=== PATIENT | male | born 1980 | race Caucasian/White ===

== ENCOUNTER 2020-01-10 14:29 | Emergency (ER) | payer BC ==
[2020-01-10] MEDS ORDERED: Sodium Chloride 0.9% 2.5 ML Syringe FLUSH PRN (15:00)
[2020-01-10] MEDS ORDERED: Sodium Chloride 0.9% 1,000 ML IV ONE (15:00)
[2020-01-10] MEDS ORDERED: Aspirin 81 MG Tab.Chew PO ONE (15:00)
[2020-01-10] MEDS ORDERED: Sodium Chloride 0.9% 10 ML Syringe FLUSH PRN (15:00)
--- NOTE | 2020-01-10 15:10 | EDM.PDOC ---
ED HPI GENERAL MEDICAL PROBLEM - General Chief Complaint: Respiratory Problem Stated Complaint: SOB TINGLING Time Seen by Provider: 01/10/20 14:34 Source of Information: Reports: Patient - History of Present Illness INITIAL COMMENTS - FREE TEXT/NARRATIVE: History of present illness: 39-year-old male presenting with feeling of tingling throughout his whole body as well as some mild difficulty breathing just prior to arrival here. He reports he was just driving into town when he suddenly started to feel this way. He pulled over and rested and symptoms stopped. However once he started driving again his symptoms returned. He reports he was at rest and was not particularly stressed when they occurred just he was singing in his car. He did note that he started to have some pressure/sharpness in his left chest around the same time. Symptoms are still ongoing now even while laying in the bed. He does report he has some mild palpitation/racing heartbeat type symptoms as well. Review of systems: As per history of present illness and below otherwise all systems reviewed and negative. Past medical history: As per history of present illness and as reviewed below otherwise noncontributory. Surgical history: As per history of present illness and as reviewed below otherwise noncontributory. Orthopedic Social history: No reported history of drug or alcohol abuse. No tobacco. Family history: As per history of present illness and as reviewed below otherwise noncontributory. Physical exam: GEN: no acute distress, well appearing HEENT: Atraumatic, normocephalic, mucous membranes moist, Neck: supple, nontender, trachea midline. Lungs: No respiratory distress. Heart: RRR Back: nontender Extremities: Atraumatic. Neurovascularly intact. Neuro: Awake, alert, oriented. Neuro Exam nonfocal. Skin: warm, dry, no lesions Diagnostics: Labs, EKG, chest x-ray Therapeutics: IV fluids MDM: Impression: [] Plan: [] Definitive disposition and diagnosis as appropriate pending reevaluation and review of above. - Related Data Allergies Allergy/AdvReac Type Severity Reaction Status Date / Time No Known Allergies Allergy Verified 01/10/20 14:33 Home Meds: Home Meds Pravastatin Sodium 20 mg PO DAILY 01/10/20 [History] Past Medical History Cardiovascular History: Reports: High Cholesterol Psychiatric History: Reports: Depression - Infectious Disease History Infectious Disease History: Reports: Chicken Pox Social & Family History - Family History Family Medical History: Noncontributory - Tobacco Use Smoking Status *Q: Unknown Ever Smoked ED ROS GENERAL - Review of Systems Review Of Systems: See Below (See HPI) ED EXAM, GENERAL - Physical Exam Exam: See Below (See HPI) EKG INTERPRETATION EKG Interpretation Comments: EKG performed today at 2:43 PM, sinus rhythm, rate 97, minimal ST prominence over inferior leads, no STEMI. Slightly prolonged QT interval of 496. EKG performed at 5:26 PM, sinus rhythm, rate 68, no acute ischemic changes. QTc 430. No STEMI. Course - Vital Signs Text/Narrative:: Palpitations, paresthesias, mild dyspnea and mild chest pain. EKG with no acute ischemia but slightly prolonged QTC. Repeat EKG with no ischemia and normalized QTC. Slightly low potassium which was repleted here. Patient given IV fluids. Patient low risk for coronary artery disease. Heart score 1. Initial and repeat troponin negative. Low risk for DVT/PE, although the patient does drive for long periods throughout the day between 2 to 6 hours. No hypoxia. D-dimer was negative. Symptoms completely resolved after IV fluids and aspirin given here. Patient agrees to follow-up with primary care physician as soon as possible. In itially we discussed plan/suggestion for Holter monitoring to be initiated here, however patient lives far and would rather follow-up outpatient with his primary care physician to arrange this. Symptom-free at time of discharge. Last Recorded V/S: Last Vital Signs Temp 97.3 F 01/10/20 14:30 Pulse 82 01/10/20 16:30 Resp 18 01/10/20 16:30 BP 133/83 01/10/20 16:30 Pulse Ox 99 01/10/20 16:30 - Orders/Labs/Meds Orders: Active Orders 24 hr Category Date Time Status EKG 12 Lead [EKG Documentation Completion] [RC] STAT Care 01/10/20 17:02 Active EKG Documentation Completion [RC] STAT Care 01/10/20 15:03 Active Sodium Chloride 0.9% [Saline Flush] Med 01/10/20 15:00 Active 10 ml FLUSH ASDIRECTED PRN Sodium Chloride 0.9% [Saline Flush] Med 01/10/20 15:00 Active 2.5 ml FLUSH ASDIRECTED PRN Saline Lock Insert [OM.PC] Stat Oth 01/10/20 15:00 Ordered Medication Orders Sodium Chloride (Saline Flush) 10 ml FLUSH ASDIRECTED PRN PRN Reason: Keep Vein Open Last Admin: 01/10/20 15:16 Dose: 10 ml Documented by: MICHELLE Sodium Chloride (Saline Flush) 2.5 ml FLUSH ASDIRECTED PRN PRN Reason: Keep Vein Open Last Admin: 01/10/20 15:16 Dose: 2.5 ml Documented by: MICHELLE Labs: Laboratory Tests 01/10/20 01/10/20 01/10/20 Range/Units 15:15 15:15 15:15 WBC 6.96 (4.0-11.0) K/uL RBC 4.88 (4.50-5.90) M/uL Hgb 15.2 (13.0-17.0) g/dL Hct 43.9 (38.0-50.0) % MCV 90.0 (80.0-98.0) fL MCH 31.1 (27.0-32.0) pg MCHC 34.6 (31.0-37.0) g/dL RDW Std Deviation 39.1 (28.0-62.0) fl RDW Coeff of Anastasiia 12 (11.0-15.0) % Plt Count 198 (150-400) K/uL MPV 10.30 (7.40-12.00) fL Neut % (Auto) 74.0 (48.0-80.0) % Lymph % (Auto) 19.0 (16.0-40.0) % [place] % (Auto) 6.3 (0.0-15.0) % Eos % (Auto) 0.4 (0.0-7.0) % Baso % (Auto) 0.3 (0.0-1.5) % Neut # (Auto) 5.2 (1.4-5.7) K/uL Lymph # (Auto) 1.3 (0.6-2.4) K/uL [place] # (Auto) 0.4 (0.0-0.8) K/uL Eos # (Auto) 0.0 (0.0-0.7) K/uL Baso # (Auto) 0.0 (0.0-0.1) K/uL Nucleated RBC % 0.0 /100WBC Nucleated RBCs # 0 K/uL D-Dimer, Quantitative < 0.19 (0.0-0.50) mg/L FEU Sodium 138 (136-148) mmol/L Potassium 3.4 L (3.5-5.1) mmol/L Chloride 101 (98-107) mmol/L Carbon Dioxide 27.0 (21.0-32.0) mmol/L BUN 14 (7.0-18.0) mg/dL Creatinine 1.4 H (0.8-1.3) mg/dL Est Cr Clr Drug Dosing 70.84 mL/min Estimated GFR (MDRD) 56.4 ml/min Glucose 114 H (74-106) mg/dL Calcium 9.0 (8.5-10.1) mg/dL Phosphorus 2.6 (2.6-4.7) mg/dL Magnesium 1.9 (1.8-2.4) mg/dL Total Bilirubin 0.5 (0.2-1.0) mg/dL AST 26 (15-37) IU/L ALT 60 (14-63) IU/L Alkaline Phosphatase 70 (46-116) U/L Creatine Kinase 96 (26-308) U/L Troponin I < 0.050 (0.000-0.056) ng/mL Total Protein 7.6 (6.4-8.2) g/dL Albumin 4.2 (3.4-5.0) g/dL Globulin 3.4 (2.6-4.0) g/dL Albumin/Globulin Ratio 1.2 (0.9-1.6) TSH 3rd Generation 0.89 (0.36-3.74) uIU/mL 01/10/20 Range/Units 17:20 WBC (4.0-11.0) K/uL RBC (4.50-5.90) M/uL Hgb (13.0-17.0) g/dL Hct (38.0-50.0) % MCV (80.0-98.0) fL MCH (27.0-32.0) pg MCHC (31.0-37.0) g/dL RDW Std Deviation (28.0-62.0) fl RDW Coeff of Anastasiia (11.0-15.0) % Plt Count (150-400) K/uL MPV (7.40-12.00) fL Neut % (Auto) (48.0-80.0) % Lymph % (Auto) (16.0-40.0) % [place] % (Auto) (0.0-15.0) % Eos % (Auto) (0.0-7.0) % Baso % (Auto) (0.0-1.5) % Neut # (Auto) (1.4-5.7) K/uL Lymph # (Auto) (0.6-2.4) K/uL [place] # (Auto) (0.0-0.8) K/uL Eos # (Auto) (0.0-0.7) K/uL Baso # (Auto) (0.0-0.1) K/uL Nucleated RBC % /100WBC Nucleated RBCs # K/uL D-Dimer, Quantitative (0.0-0.50) mg/L FEU Sodium (136-148) mmol/L Potassium (3.5-5.1) mmol/L Chloride (98-107) mmol/L Carbon Dioxide (21.0-32.0) mmol/L BUN (7.0-18.0) mg/dL Creatinine (0.8-1.3) mg/dL Est Cr Clr Drug Dosing mL/min Estimated GFR (MDRD) ml/min Glucose (74-106) mg/dL Calcium (8.5-10.1) mg/dL Phosphorus (2.6-4.7) mg/dL Magnesium (1.8-2.4) mg/dL Total Bilirubin (0.2-1.0) mg/dL AST (15-37) IU/L ALT (14-63) IU/L Alkaline Phosphatase (46-116) U/L Creatine Kinase (26-308) U/L Troponin I < 0.050 (0.000-0.056) ng/mL Total Protein (6.4-8.2) g/dL Albumin (3.4-5.0) g/dL Globulin (2.6-4.0) g/dL Albumin/Globulin Ratio (0.9-1.6) TSH 3rd Generation (0.36-3.74) uIU/mL Meds: Medications Generic Name Dose Route Start Last Admin Trade Name Freq PRN Reason Stop Dose Admin Sodium Chloride 10 ml 01/10/20 15:00 01/10/20 15:16 Saline Flush FLUSH 10 ml ASDIRECTED PRN Administration Keep Vein Open Sodium Chloride 2.5 ml 01/10/20 15:00 01/10/20 15:16 Saline Flush FLUSH 2.5 ml ASDIRECTED PRN Administration Keep Vein Open Discontinued Medications Generic Name Dose Route Start Last Admin Trade Name Kyleigh PRN Reason Stop Dose Admin Aspirin 324 mg 01/10/20 15:00 01/10/20 15:16 Aspirin PO 01/10/20 15:01 324 mg ONETIME ONE Administration Sodium Chloride 1,000 mls @ 999 mls/hr 01/10/20 15:00 01/10/20 15:16 Normal Saline IV 01/10/20 16:00 999 mls/hr .Bolus ONE Administration Potassium Chloride 40 meq 01/10/20 16:27 01/10/20 17:10 Potassium Chloride PO 01/10/20 16:28 40 meq ONETIME ONE Administration - Re-Assessments/Exams Free Text/Narrative Re-Assessment/Exam: 01/10/20 16:48 Patient reassessed. He is resting comfortably and in no acute distress. He reports that he feels the tingling is improved/resolved and he does not have much now in the way of any symptoms. Discussed lab results. Discussed plan of care. Will give patient the rest of the 1 L of normal saline that is infusing now and attempt trial of ambulation/reassess symptoms at that time. 01/10/20 17:10 The patient has now received all his IV fluids. I reassessed him. He is in no acute distress. No further symptoms. I did recommend to the patient a ZIO patch Holter monitor that we could attach right here and an order was placed, however the patient reports that he lives more than 2 hours away from here and is not likely going to be passing back through here, therefore he prefers instead call his primary care physician tomorrow first thing to get scheduled for outpatient Holter monitoring. 01/10/20 17:55 Troponin negative. Repeat EKG unchanged. Will discharge. Departure - Departure Time of Disposition: 17:55 Disposition: Home, Self-Care 01 Clinical Impression: Palpitations, Paresthesia, Hypokalemia, Dyspnea, Chest pain - Discharge Information Instructions: Shortness of Breath, Adult, [id number], Hypokalemia, Palpitati ons, [id number], Potassium Content of Foods, Paresthesia, [id number], Ambulatory Cardiac Monitoring, Nonspecific Chest Pain, Adult, [id number] Referrals: PCP,None [Ordering Only Provider] - Forms: ED Department Discharge Additional Instructions: Please follow-up with your primary care physician in [place] as soon as possible to be arranged for an outpatient Holter monitor testing. Return to the nearest emergency department if you develop chest pain again or any other severe or concerning symptoms. Rest. Drink plenty of fluids. Try to avoid driving as much as possible or get out and walk frequently whenever you do have to drive, try to get out and walk every hour. The following information is given to patients seen in the emergency department who are being discharged to home. This information is to outline your options for follow-up care. We provide all patients seen in our emergency department wi th a follow-up referral. The need for follow-up, as well as the timing and circumstances, are variable depending upon the specifics of your emergency department visit. If you don't have a primary care physician on staff, we will provide you with a referral. We always advise you to contact your personal physician following an emergency department visit to inform them of the circumstance of the visit and for follow-up with them and/or the need for any referrals to a consulting specialist. The emergency department will also refer you to a specialist when appropriate. This referral assures that you have the opportunity for follow-up care with a specialist. All of these measure are taken in an effort to provide you with optimal care, which includes your follow-up. Under all circumstances we always encourage you to contact your private physician who remains a resource for coordinating your care. When calling for follow-up care, please make the office aware that this follow-up is from your recent emergency room visit. If for any reason you are refused follow-up, please contact the [facility] Emergency Department at and asked to speak to the emergency department charge nurse. Sepsis Event Note (ED) - Evaluation Sepsis Screening Result: No Definite Risk - Focused Exam Vital Signs: Vital Signs Temp Pulse Resp BP Pulse Ox 01/10/20 16:30 82 18 133/83 99 01/10/20 16:00 87 18 143/81 H 99 01/10/20 14:57 77 18 128/77 99 01/10/20 14:30 97.3 F 101 H 16 155/86 H - My Orders Last 24 Hours: My Active Orders 01/10/20 15:00 Sodium Chloride 0.9% [Saline Flush] 10 ml FLUSH ASDIRECTED PRN Sodium Chloride 0.9% [Saline Flush] 2.5 ml FLUSH ASDIRECTED PRN Saline Lock Insert [OM.PC] Stat 01/10/20 15:03 EKG Documentation Completion [RC] STAT 01/10/20 17:02 EKG 12 Lead [EKG Documentation Completion] [RC] STAT - Assessment/Plan Last 24 Hours: My Active Orders 01/10/20 15:00 Sodium Chloride 0.9% [Saline Flush] 10 ml FLUSH ASDIRECTED PRN Sodium Chloride 0.9% [Saline Flush] 2.5 ml FLUSH ASDIRECTED PRN Saline Lock Insert [OM.PC] Stat 01/10/20 15:03 EKG Documentation Completion [RC] STAT 01/10/20 17:02 EKG 12 Lead [EKG Documentation Completion] [RC] STAT
[2020-01-10 16:04] LABS: BLOOD UREA NITROGEN,BUN 14 mg/dL (7.0-18.0); CHLORIDE,CL 101 mmol/L (98-107); GLUCOSE RANDOM 114 mg/dL (74-106); POTASSIUM,K 3.4 mmol/L (3.5-5.1); SODIUM,NA 138 mmol/L (136-148)
--- NOTE | 2020-01-10 16:08 | CR ---
Chest: 2 views of the chest were obtained. Comparison: No previous chest imaging. Heart size and mediastinum are normal. Lungs are clear with no acute parenchymal change. Mild deformity of the right clavicle is seen raising the possibility of old healed fracture. Impression: 1. Nothing acute is appreciated on 2 view chest x-ray. Diagnostic code #2 Study was dictated in [facility]T
[2020-01-10] MEDS ORDERED: Potassium Chloride 10% 20 MEQ/15 ML Soln 30 ML UD Cup PO ONE (16:27)
[2020-01-10 19:05] VITALS: BP 155/87; PULSE 84
== END 2020-01-10 18:05 | disposition home or self-care (01) ==
LOC: MW.ED 14:29
DX: R07.9 Chest pain, unspecified (principal); R00.2 Palpitations; R06.00 Dyspnea, unspecified; R20.2 Paresthesia of skin; E87.6 Hypokalemia; E78.00 Pure hypercholesterolemia, unspecified; Z79.899 Other long term (current) drug therapy
CPT/HCPCS: 36415; 71046; 80053; 82550; 83735; 84100; 84443; 84484; 85025; 85379; 93005; 99285; A9270; J7030; 99284